=== PATIENT | female | born 1955 | race Caucasian/White ===

== ENCOUNTER 2018-07-05 12:50 | Inpatient (IN) | payer OTHER ==
[~2018-07-05] VITALS: Ht 149.9 cm; Wt 54.0 kg
[~2018-07-05 12:50] MED LIST: ALBUTEROL2.5 MG/3 M; BACTRIM DS TABL1 TAB PO; BUDEO.25; CHOLESTYRAMINE P4 GM PO; CLONAZEPAM0.5 MG PO; DEPAKOTE ER250 MG PO; GAS-X125 M1 PO; GENVOYA PO; KETO10TA2 PO; LOPERAMIDE2 MG PO; NEBUSAL4 ML; PERCOCET 5-3251 EACH PO; RESTORIL15 M1 PO; SINGULAIR10 MG PO; SPIRIVA IN; TRAM1TAB98 PO; ZYRTEC10 M3 PO
[2018-07-05] MEDS ORDERED: TESSALON PERLE100 M1 PO (13:15)
[2018-07-05] MEDS ORDERED: COZAAR25 MG PO (13:15)
[2018-07-05] MEDS ORDERED: COZAAR100 MG PO (13:15)
[2018-07-05] MEDS ORDERED: ZOCOR40 MG PO (13:16)
[2018-07-13] MEDS ORDERED: GENVOYA TABLET1 EACH PO ×2 (12:47→13:50)
[2018-07-13] MEDS ORDERED: SPIRIVA RESPIMAT4 G1 IH (13:49)
[2018-07-14] MEDS ORDERED: ELIQUIS2.5 MG PO (16:59)
[2018-07-14] MEDS ORDERED: PERCOCET 5-3251 EACH PO (16:59)
[2018-07-14] MEDS ORDERED: DUI500 PO (16:59)
== END 2018-07-14 18:46 | DRG 470 ==
LOC: SURG 07-12 07:00 → O/R 07-12 07:26 → SURH 07-12 07:26 → SURG 07-12 12:49 → SURH 07-12 20:43
PROVIDERS: Orthopaedic Surgery
PROC: 0SRB0JZ Replacement of Left Hip Joint with Synthetic Substitute, Open Approach (ICD-10-PCS; principal; 2018-07-12 07:00)
PROC: 3E0F7GC Introduction of Other Therapeutic Substance into Respiratory Tract, Via Natural or Artificial Opening (ICD-10-PCS; 2018-07-13)
DX: M16.12 Unilateral primary osteoarthritis, left hip (principal); B20 Human immunodeficiency virus [HIV] disease; M87.852 Other osteonecrosis, left femur; D62 Acute posthemorrhagic anemia; J43.2 Centrilobular emphysema; Z86.711 Personal history of pulmonary embolism; J43.1 Panlobular emphysema

== ENCOUNTER 2021-06-05 06:50 | Day surgery (SDC) | payer OTHER ==
[~2021-06-05 06:50] MED LIST changes: +COZAAR100 MG PO; +COZAAR25 MG PO; +DUI500 PO; +ELIQUIS2.5 MG PO; +GENVOYA TABLET1 EACH PO; +SPIRIVA RESPIMAT4 G1 IH; +TESSALON PERLE100 M1 PO; +ZOCOR40 MG PO
== END 2021-06-05 12:40 | disposition home or self-care (01) ==
LOC: AMB-ENDOS 06:50
PROVIDERS: ATTEND Surgery
DX: D12.4 Benign neoplasm of descending colon (principal); Z20.822 Contact with and (suspected) exposure to COVID-19

== ENCOUNTER 2021-06-16 11:34 | Emergency (ER) | payer OTHER ==
[~2021-06-16] VITALS: Ht 149.9 cm; Wt 41.7 kg
== END 2021-06-20 00:14 | disposition designated cancer center or children's hospital (05) ==
LOC: ER 11:34 → CPU-OBS 14:02 → ER 14:02
DX: B20 Human immunodeficiency virus [HIV] disease (principal); I71.3 Abdominal aortic aneurysm, ruptured; G89.18 Other acute postprocedural pain; R10.32 Left lower quadrant pain; R19.7 Diarrhea, unspecified; J44.9 Chronic obstructive pulmonary disease, unspecified; R09.02 Hypoxemia; J43.1 Panlobular emphysema; J43.2 Centrilobular emphysema; D62 Acute posthemorrhagic anemia; K62.3 Rectal prolapse; E87.6 Hypokalemia; I25.10 Atherosclerotic heart disease of native coronary artery without angina pectoris; I24.9 Acute ischemic heart disease, unspecified; I10 Essential (primary) hypertension; F17.200 Nicotine dependence, unspecified, uncomplicated; Z03.818 Encounter for observation for suspected exposure to other biological agents ruled out; Z98.890 Other specified postprocedural states